=== PATIENT | female | born 1960 | race African-American/Black ===

== ENCOUNTER 2023-10-09 08:10 | Emergency (ER) | payer OTHER ==
[~2023-10-09] VITALS: Ht 170.2 cm; Wt 125.0 kg
[2023-10-09 08:11] VITALS: TEMP 98; O2SAT 99
[2023-10-09] MEDS ORDERED: CYCLOBENZAPRINE 10MG TABLET PO ONE (08:45)
[2023-10-09] MEDS ORDERED: KETOROLAC 15MG/ML VIAL IM ONE (08:45)
[2023-10-09] MEDS ORDERED: CYCLOBENZAPRINE 10MG TABLET PO NR (09:45)
[2023-10-09] MEDS: CYCLOBENZAPRINE 10MG TABLET PO NR (09:48)
[2023-10-09 09:49] VITALS: BP 194/99; PULSE 91; RESP 18
[2023-10-09] MEDS: KETOROLAC 15MG/ML VIAL IM NR (09:49)
== END 2023-10-09 11:18 | disposition home or self-care (01) ==
LOC: ER 08:32
DX: M54.30 Sciatica, unspecified side (principal); I10 Essential (primary) hypertension
CPT/HCPCS: 96372; 99283; J1885; Z7610 ×2